=== PATIENT | female | born 1985 | race African-American/Black ===

== ENCOUNTER 2018-04-21 14:06 | Emergency (ER) | payer MEDICAID ==
[~2018-04-21] VITALS: Ht 175.3 cm; Wt 78.0 kg
[2018-04-21 21:42] VITALS: BP 118/83
== END 2018-04-21 21:56 | disposition home or self-care (01) ==
LOC: ER 16:32
DX: S06.0X0A Concussion without loss of consciousness, initial encounter (principal); H72.92 Unspecified perforation of tympanic membrane, left ear; F17.200 Nicotine dependence, unspecified, uncomplicated; Y08.89XA Assault by other specified means, initial encounter; Y93.89 Activity, other specified; Y92.89 Other specified places as the place of occurrence of the external cause; Y99.8 Other external cause status
CPT/HCPCS: 99283

== ENCOUNTER 2019-01-13 12:02 | Emergency (ER) | payer MEDICAID ==
[~2019-01-13] VITALS: Ht 175.3 cm; Wt 68.0 kg
[2019-01-13 13:19] LABS: BASOPHILS % 0.3 % (0.0-2.0); EOSINOPHILS % 0.1 % (0.0-5.0); HEMATOCRIT. 35.8 % (36.0-48.0); LYMPHOCYTES % 17.3 % (20.0-50.0); MEAN CORPUSCULAR HEMOGLOBIN 29.7 pg (28.0-32.0); MEAN CORPUSCULAR VOLUME 88.3 fL (81.0-99.0); MEAN PLATELET VOLUME 8.1 fl (7.4-10.4); MONOCYTES % 6.6 % (2.0-8.0); NEUTROPHILS % 75.7 % (40.0-76.0); PLATELET 180 x1000/uL (130-400); RED BLOOD CELL COUNT 4.05 mill/uL (4.2-5.4); RED CELL DISTRIBUTION WIDTH 12.7 % (11.6-14.6)
[2019-01-13 15:17] LABS: CLARITY URINE CLOUDY (CLEAR); COLOR URINE YELLOW (YELLOW); KETONES URINE NEGATIVE (NEGATIVE); LEUKOCYTE ESTERASE URINE NEGATIVE (NEGATIVE); NITRITE URINE NEGATIVE (NEGATIVE); OCCULT BLOOD URINE NEGATIVE (NEGATIVE); PH URINE 6.5 (4.5-8.0); PROTEIN URINE NEGATIVE (NEGATIVE); SPECIFIC GRAVITY URINE 1.007 (1.005-1.030); UROBILINOGEN URINE 0.2 E.U./dL (0.2-1.0)
[2019-01-13 15:40] VITALS: BP 129/76
== END 2019-01-13 15:51 | disposition home or self-care (01) ==
LOC: ER 12:02
DX: N93.8 Other specified abnormal uterine and vaginal bleeding (principal); Z87.891 Personal history of nicotine dependence
CPT/HCPCS: 36415; 76856; 81003; 81025; 84702; 99284

== ENCOUNTER 2024-10-18 11:17 | Emergency (ER) | payer MEDICAID ==
[~2024-10-18] VITALS: Ht 172.7 cm; Wt 73.0 kg
[~2024-10-18 11:17] MED LIST: CEPH500C2 MT
[2024-10-18 11:25] VITALS: O2SAT 100
[2024-10-18] MEDS: KETOROLAC 30MG/ML VIAL IM ONE (14:09)
[2024-10-18] MEDS ORDERED: LIDO700A30 TP (14:23)
[2024-10-18] MEDS ORDERED: IBUP-2030 MT (14:23)
[2024-10-18 14:45] VITALS: BP 135/85; PULSE 103; RESP 18; TEMP 36.9; O2SAT 100
== END 2024-10-18 14:46 | disposition home or self-care (01) ==
LOC: ER 11:17
DX: S09.8XXA Other specified injuries of head, initial encounter (principal); R51.9 Headache, unspecified; R07.81 Pleurodynia; Y04.0XXA Assault by unarmed brawl or fight, initial encounter; Y93.89 Activity, other specified; Y92.89 Other specified places as the place of occurrence of the external cause; Y99.8 Other external cause status
CPT/HCPCS: 99285; 70450; 81025; 71101; 96372; J1885